=== PATIENT | female | born 1985 | race Caucasian/White ===

== ENCOUNTER 2020-01-10 21:21 | Emergency (ER) | payer MEDICAID ==
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
[2020-01-10 21:30] VITALS: BP 128/76; PULSE 77
--- NOTE | 2020-01-11 08:22 | CT ---
Head CT Technique: Multiple axial sections through the brain were obtained. Intravenous contrast was not utilized. Comparison: No prior intracranial imaging is available. Findings: Ventricles along with basal cisterns and sulci over the convexities are within normal limits for the patient's age. No abnormal parenchymal densities are seen. No evidence of intracranial hemorrhage. No midline shift or mass-effect is seen. Dural based calcification noted within the right parietal convexity believed to represent a small and incidental meningioma. Bone window settings were reviewed. Mastoid sinuses that are seen as well as visualized paranasal sinuses show nothing acute. No acute calvarial abnormality is appreciated. Impression: 1. Small calcification within the right parietal convexity most likely representing old calcified meningioma. No further follow-up is felt to be needed. 2. No acute intracranial abnormality is appreciated. Diagnostic code #2 This report was dictated in MDT I agree with preliminary report from [facility], finalized on 01/10/20, 11:10 PM Central Daylight Time
--- NOTE | 2020-01-11 08:22 | CT ---
CT facial bones Technique: Multiple axial sections through the facial bones were obtained. Intravenous contrast was not utilized. Findings: Mildly comminuted and mildly displaced nasal bone fracture is noted. Probable fracture within the nasal septum is also noted. Orbital finney and paranasal sinus finney show no fracture. Slight mucosal thickening or small retention cyst is noted within the right maxillary sinus measuring 1.0 cm in size. Paranasal sinuses otherwise show nothing acute. Mastoid sinuses show nothing acute. Right and left globes are symmetric. Soft tissue swelling is noted around the nose. Impression: 1. Mildly comminuted and mildly displaced nasal bone fracture. Probable nasal septal fracture is also present. Soft tissue swelling is seen around the nose. 2. No other acute finding is seen. 3. Minimal mucosal thickening or retention cyst within the right maxillary sinus which is believed to be pre-existing and incidental. Diagnostic code #3 This report was dictated in MDT I agree with preliminary report from [facility], finalized on 01/10/20, 11:05 PM [employer] Daylight Time
== END 2020-01-10 22:36 | disposition home or self-care (01) ==
LOC: JD.ED 21:21
DX: S02.2XXA Fracture of nasal bones, initial encounter for closed fracture (principal); Y04.0XXA Assault by unarmed brawl or fight, initial encounter
CPT/HCPCS: 70450; 70450-26; 70486; 70486-26; 99283; 99284-25

== ENCOUNTER 2025-08-31 23:16 | Emergency (ER) | payer MEDICAID ==
[2025-09-01 00:38] VITALS: BP 126/86; PULSE 79
== END 2025-09-01 00:34 | disposition home or self-care (01) ==
LOC: JD.ED 23:16
DX: S81.812A Laceration without foreign body, left lower leg, initial encounter (principal); F17.210 Nicotine dependence, cigarettes, uncomplicated; W22.8XXA Striking against or struck by other objects, initial encounter; Y93.01 Activity, walking, marching and hiking
CPT/HCPCS: 12002; 99282; J2003